=== PATIENT | male | born 1995 | race Two or more races ===

== ENCOUNTER 2019-04-23 16:23 | Emergency (ER) | payer MEDICAID ==
[~2019-04-23] VITALS: Ht 175.3 cm; Wt 70.3 kg
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
[2019-04-23] MEDS ORDERED: NAPROXEN500 M2 ORAL (17:24)
--- NOTE | 2019-04-23 17:24 | Emergency Room Report ---
History of Present Illness General Chief Complaint: Lower Extremity Injury Source: Patient Present Illness HPI 24-year-old male with no significant past medical history here complaining of left ankle pain after jumping 8 feet today. Is walking with a limp, rating the pain 7 out of 10, without radiation, constant worsening with walking. Has not taken any medication for pain nor has he been icing or heating the affected area. Denies tingling and numbness, all other injuries such as head injury, chest pain, shortness of breath, palpitation, and all other associated symptoms Allergies: Coded Allergies: No Known Allergies (Unverified , 04/23/19) Patient History Past Medical History: see triage record Past Surgical History: unable to obtain Pertinent Family History: none Immunizations: UTD Reviewed Nursing Documentation: PMH: Agreed; PSxH: Agreed Nursing Documentation-PMH Past Medical History: No Stated History Review of Systems All Other Systems: negative except mentioned in HPI Physical Exam Vital Signs Date Time Temp Pulse Resp B/P (MAP) Pulse Ox O2 Delivery O2 Flow Rate FiO2 04/23/19 16:25 98.1 57 17 124/71 (88) 99 Room Air Sp02 EP Interpretation: reviewed, normal General Appearance: normal inspection, well appearing, no apparent distress, alert, GCS 15 Eyes: bilateral eye normal inspection, bilateral eye PERRL ENT: normal ENT inspection, hearing grossly normal Neck: normal inspection, full range of motion, supple Respiratory: normal inspection, chest non-tender, lungs clear, no rhonchi, no respiratory distress, no wheezing Cardiovascular #1: normal inspection, normal peripheral pulses, regular rate, rhythm, no murmur, normal capillary refill Gastrointestinal: normal inspection, non tender Genitourinary: no CVA tenderness Musculoskeletal: digits/nails normal, no calf tenderness, swelling - Ankle Neurologic: normal inspection, alert, oriented x3, responsive Psychiatric: normal inspection, judgement/insight normal Skin: normal inspection, normal color, no rash Lymphatic: normal inspection, no adenopathy Medical Decision Making PA Attestation All my diagnosis and treatment plans were reviewed ad discussed with my supervising physician Dr. Ring Diagnostic Impression: Primary Impression: Left ankle sprain ER Course 24-year-old male with no significant past medical history here complaining of left ankle pain after jumping 8 feet today. Is walking with a limp, rating the pain 7 out of 10, without radiation, constant worsening with walking. Has not taken any medication for pain nor has he been icing or heating the affected area. Denies tingling and numbness, all other injuries such as head injury, chest pain, shortness of breath, palpitation, and all other associated symptoms Ddx considered but are not limited to: ankle sprain, ankle strain, ankle fracture, ankle contusion Vital signs: are WNL, pt. is afebrile H&PE are most consistent with: ankle sprain ORDERS: left ankle Xray, Naproxen ED INTERVENTIONS: None required at this time. DISCHARGE: At this time pt. is stable for d/c to home. Will provide printed patient care instructions, and any necessary prescriptions. Care plan and follow up instructions have been discussed with the patient prior to discharge. follow With a primary care provider for further assessment and possible MRI avoid strenuous physical activity Other X-Ray Diagnostic Results Other X-Ray Diagnostic Results : X-Ray ordered: left ankle # of Views/Limited Vs Complete: 3 View Indication: Pain EP Interpretation: Yes PA Xray: Interpretation reviewed, by supervising MD, and agrees with findings. Interpretation: no dislocation, no fractures Impression: No acute disease Electronically Signed by: shanna MTZ Scribe Text no acute fx Last Vital Signs Date Time Temp Pulse Resp B/P (MAP) Pulse Ox O2 Delivery O2 Flow Rate FiO2 04/23/19 16:25 98.1 57 17 124/71 (88) 99 Room Air Disposition: HOME, SELF-CARE Condition: Stable Scripts Naproxen* (NAPROXEN*) 500 Mg Tablet 500 MG ORAL TWICE A DAY, #30 TAB Prov: Shanna Patricio 04/23/19 Patient Instructions: Ankle Sprain Additional Instructions: Primary care provider for follow-up keep leg elevated avoid strenuous physical activity Shanna Patricio Apr 23, 2019 17:24
[2019-04-23 17:45] VITALS: BP 128/71
--- NOTE | 2019-04-23 17:46 | NUR ---
ED Nurse Note: ermd eval done christine wrap to left ankle done pt given aci and script verbalized understanding ambulated out with steady gait wit friend
== END 2019-04-23 17:40 | disposition home or self-care (01) ==
LOC: EMR 16:58
DX: S93.402A Sprain of unspecified ligament of left ankle, initial encounter (principal); X58.XXXA Exposure to other specified factors, initial encounter; Y93.39 Activity, other involving climbing, rappelling and jumping off; Y92.9 Unspecified place or not applicable
CPT/HCPCS: 99283

== ENCOUNTER 2019-11-04 22:44 | Emergency (ER) | payer MEDICAID ==
[~2019-11-04] VITALS: Ht 177.8 cm; Wt 68.0 kg
[~2019-11-04 22:44] MED LIST: NAPROXEN500 M2 ORAL
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
[2019-11-04 23:07] VITALS: BP 125/84
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
[2019-11-05] MEDS ORDERED: IBUPROFEN600 MG ORAL (00:06)
--- NOTE | 2019-11-05 00:12 | NUR ---
ED Nurse Note: pt is cleared to be d/c per ERMD, pt discharge and aftercare instruction provided w/ prescription, pt education done via discussion and handout, pt advised to follow up with pcp or return to ed if changes in condition, vss, ambulatory w/ steady gait, left w/ all belongings.
[2019-11-05 00:13] VITALS: BP 125/84
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
== END 2019-11-05 00:13 | disposition home or self-care (01) ==
LOC: EMR 23:40
DX: S46.911A Strain of unspecified muscle, fascia and tendon at shoulder and upper arm level, right arm, initial encounter (principal); X58.XXXA Exposure to other specified factors, initial encounter; Y92.9 Unspecified place or not applicable
CPT/HCPCS: 73030; Z7502; 99283